=== PATIENT | female | born 1955 | race Caucasian/White ===

== ENCOUNTER 2016-07-08 06:10 | Emergency (ER) | payer BC ==
[~2016-07-08] VITALS: Ht 157.5 cm; Wt 108.0 kg
[~2016-07-08 06:10] MED LIST: GLIM2TAB PO; LOSA100T7 PO; MECL25TA2 PO; METF1000 PO; ONDA4TAB35 PO; SIMV20TA PO; SYN15 PO
[2016-07-08 06:31] VITALS: Ht 157.5 cm; Wt 108.0 kg
[2016-07-08] MEDS ORDERED: KETOROLAC 30 MG INJ IM STA (06:56)
--- NOTE | 2016-07-08 07:46 | RADRPT ---
PROCEDURE: XR right shoulder. CLINICAL INDICATION: shoulder pain TECHNIQUE: 3 views of the right shoulder were obtained COMPARISON: None. FINDINGS: Note that on AP external rotation image there is motion artifact. All 3 images demonstrate poor con trast technique. There is no definite fracture dislocation or AC separation. No focal bony blastic or lytic lesions. IMPRESSION: Limited evaluation of the right shoulder due to technique however no definite fracture dislocation o r AC separation. RPTAT:AAJJ Physician Snow Date Time Electronically viewed and signed by Physician Snow on 07/08/2016 07:46 BM/
[2016-07-08] MEDS ORDERED: HYDR-906 PO (07:59)
[2016-07-08] MEDS ORDERED: NAPR-260 PO (08:00)
--- NOTE | 2016-07-08 08:21 | ERD ---
ER Documentation Chief Complaint Date/Time DATE: 07/08/16 TIME: 08:16 Chief Complaint R shoulder pain HPI Patient is a 61-year-old female with no significant medical history presenting to the emergency department for right shoulder pain for the past 3 days. The patient states her pain currently as a 10 out of 10 only wall moving. The patient reports very mild pain when at rest. The patient reports a fall proximally 1 year ago but it was not onto her shoulder. She has no recent trauma or injuries. The patient has taken ibuprofen at home with very mild relief. Patient denies any numbness or tingling. The patient denies any nausea , vomiting, fevers, chills, chest pain, shortness of breath or other symptoms at this time ROS All systems reviewed and are negative except as per history of present illness. Medications Home Meds Active Scripts Naproxen* (Naprosyn*) 500 Mg Tablet, 500 MG PO BID Y for PAIN AND/OR INFLAMMATION, #15 TAB Prov:BRITTANI GUILLERMO PA-C 07/08/16 Hydrocodone/Acetaminophen (Lacrosse 5-325 Tablet) 1 Each Tablet, 1 TAB PO Q6H Y for PAIN, #7 TAB Prov:BRITTANI GUILLERMO PA-C 07/08/16 Ondansetron Hcl* (Zofran* ODT) 4 mg -ODT Tab.disper, 4 MG PO Q6 Y for NAUSEA AND /OR VOMITING, #10 TAB Prov:ANGELA SANDY MD 05/13/15 Meclizine Hcl* (Antivert*) 25 Mg Tablet, 25 MG PO Q6H, #20 TAB Prov:ANGELA SANDY MD 05/13/15 Reported Medications Losartan Potassium* (Losartan Potassium*) 100 Mg Tablet, 100 MG PO DAILY, TAB 05/13/15 Glimepiride* (Glimepiride*) 2 Mg Tablet, 2 MG PO DAILY, TAB 05/13/15 Simvastatin* (Zocor*) 20 Mg Tablet, 20 MG PO HS, TAB 05/13/15 Metformin Hcl* (Metformin Hcl*) 1,000 Mg Tablet, 1000 MG PO BID, TAB 05/13/15 Levothyroxine Sodium* (Synthroid*) 150 Mcg Tablet, 150 MCG PO AC BREAKFAST, TAB 05/13/15 Allergies Allergies: Coded Allergies: No Known Drug Allergies (Verified Allergy, Mild, 05/13/15) PMhx/Soc History of Surgery: Yes (cholecystectomy, right knee) Anesthesia Reaction: No Hx Neurological Disorder: No Hx Respiratory Disorders: No Hx Cardiac Disorders: No Hx Psychiatric Problems: No Hx Miscellaneous Medical Probl: Yes (DM, HYPOTHYROIDISM, HTN, HYPERLIPIDEMIA, FATTY LIVER) Hx Alcohol Use: No Hx Substance Use: No Hx Tobacco Use: No FmHx Noncontributory for chief complaint Physical Exam Vitals Vital Signs Date Time Temp Pulse Resp B/P Pulse Ox O2 Delivery O2 Flow Rate FiO2 07/08/16 06:31 98.4 84 18 164/77 95 Physical Exam INITIAL VITAL SIGNS: Reviewed by me. GENERAL: Alert and interactive. No acute distress. HEAD: Head is normocephalic and atraumatic. EYES: EOMI. No scleral icterus. No conjunctival injection. ENT: Moist mucosa. NECK: Supple. Full range of motion. RESPIRATORY: Normal respiratory effort. Clear breath sounds bilaterally. No wheezing, rales, or rhonchi. CV: Regular rate and rhythm. Normal S1 S2. No S3 or S4. No murmurs. ABDOMEN: Soft, non-distended, non-tender. No guarding. No rebound. No masses. EXTREMITIES: The right shoulder is tender to palpation over the anterior portion. There is limited range of motion secondary to pain. SKIN: Warm and dry. NEUROLOGIC: Alert and oriented x 4. Speech is normal. Moves all extremities equally. No motor or sensory deficits noted. Results 24 hrs Current Medications Medications (Trade) Dose Ordered Sig/Yesenia Route PRN Reason Start Time Stop Time Status Last Admin Dose Admin Ketorolac Tromethamine (Toradol) 30 mg ONCE STAT IM 07/08/16 06:56 07/08/16 06:58 DC 07/08/16 07:49 Procedures/MDM X-ray Shoulder 3V Interpreted by radiologist PROCEDURE: XR right shoulder. CLINICAL INDICATION: shoulder pain TECHNIQUE: 3 views of the right shoulder were obtained COMPARISON: None. FINDINGS: Note that on AP external rotation image there is motion artifact. All 3 images demonstrate poor contrast technique. There is no definite fracture dislocation or AC separation. No focal bony blastic or lytic lesions. IMPRESSION: Limited evaluation of the right shoulder due to technique however no definite fracture dislocation or AC separation. MDM: 59-year-old female presents to the emergency department for right shoulder pain which is been going on for 3 days. On physical examination there is limited range of motion secondary to pain but I have very low suspicion for dislocation. On review of the x-ray there is no definite fracture, dislocation , or AC separation. The patient was given IM Toradol in the department and on reevaluation she was feeling improved. The patient was advised to follow-up with her primary medical doctor for further evaluation, treatment, or imaging. The patient was given a copy of her shoulder x-ray as well as prescriptions for Lacrosse and naproxen for acute pain relief. The patient understands diagnosis and the plan, her questions and concerns were addressed, and she is stable for discharge at this time. Departure Diagnosis: Primary Impression: Shoulder pain Condition: Stable Patient Instructions: Shoulder Pain (Uncertain Cause) Additional Instructions: No mas mejor en 2-3 robles, regresar. Mas peor en 24 horas, regresear rapidamente. Ir a doctor primario in 5-7 robles. Usar instrucciones cuando abelardo medicamento. BRITTANI GUILLERMO PA-C Jul 08, 2016 08:21
[2016-07-08 08:45] VITALS: BP 149/67; PULSE 79; RESP 18
== END 2016-07-08 08:46 | disposition home or self-care (01) ==
LOC: FTE 06:10
DX: M25.511 Pain in right shoulder (principal); E11.9 Type 2 diabetes mellitus without complications; E03.9 Hypothyroidism, unspecified; I10 Essential (primary) hypertension; Z79.84 Long term (current) use of oral hypoglycemic drugs
CPT/HCPCS: 73030; 96372; 99284; J1885

== ENCOUNTER → 2018-04-07 | Outpatient (CLI) | END | disposition home or self-care (01) ==

== ENCOUNTER → 2018-11-12 | Outpatient (CLI) | payer BC ==
[~2018-11-12] MED LIST changes: +HYDR-4011 PO; +LEVO150T87 PO; +LOSA100T15 PO; -LOSA100T7 PO; -METF1000 PO; +METF100010 PO; +NAPR-985 PO; -SYN15 PO
== END | disposition home or self-care (01) ==
LOC: LAB 07:04
PROVIDERS: ATTEND Internal Medicine
DX: E11.9 Type 2 diabetes mellitus without complications (principal); I10 Essential (primary) hypertension; E78.5 Hyperlipidemia, unspecified; E03.9 Hypothyroidism, unspecified
CPT/HCPCS: 80053; 80061; 83036; 84439; 84443; 85025